=== PATIENT | male | born 1955 | race African-American/Black ===

== ENCOUNTER 2017-03-13 00:17 | Observation (INO) | payer OTHER ==
[~2017-03-13] VITALS: Ht 182.9 cm; Wt 108.9 kg
[~2017-03-13 00:17] MED LIST: ATOR20TA PO; CRESTOR20 MG PO; GABA600T2 PO; INSU100I17 SQ; INSU100V8 SQ; METF500T3 PO
--- NOTE | 2017-03-13 00:37 | PHYS DOC ---
Past History Past Medical History: Diabetes Additional Past Medical Histor: history of pericarditis Past Surgical History: No Surgical History Smoking: Non-smoker Alcohol Use: Occasionally Drug Use: None Adult General Chief Complaint Chief Complaint: chest pain [facility] HPI This patient is a pleasant 62-year-old male with history of diabetes and prior pericarditis who presents with three-hour history of chest pain that began after eating a helping of chicken wings. Patient describes the chest pain as pressure in the epigastrium with no radiation to the back, chest wall, shoulder , jaw or lower abdomen. He has some nausea without vomiting, no diaphoresis no diarrhea. He denies any night sweats, fevers, chills, URI symptoms or chest wall pain or shortness of breath with exertion. The pain is not changed with position. He is not headache like this in the past. He admits his sugars and been under decent control. He denies any sick contacts or recent travel outside the country or recent antibiotic use. Patient denies any trauma. Patient's pain is moderate at this time Dr. Alejandro is PCP Review of Systems Review of Systems Constitutional: Denies fever or chills [] Eyes: Denies change in visual acuity, redness, or eye pain [] HENT: Denies nasal congestion or sore throat [] Respiratory: Denies cough or shortness of breath [] Cardiovascular: No additional information not addressed in HPI [] GI: He describes some mid epigastric abdominal pain with no nausea vomiting diarrheal stools. : Denies dysuria or hematuria [] Musculoskeletal: Denies back pain or joint pain [] Integument: Denies rash or skin lesions [] Neurologic: Denies headache, focal weakness or sensory changes [] Endocrine: Denies polyuria or polydipsia [] Allergies Allergies Allergies Coded Allergies Type Severity Reaction Last Updated Verified No Known Drug Allergies 06/16/15 No Physical Exam Physical Exam Constitutional: Well developed, well nourished, no acute distress, non-toxic appearance. [] HENT: Normocephalic, atraumatic, bilateral external ears normal, oropharynx moist, no oral exudates, nose normal. [] Eyes: PERRLA, EOMI, conjunctiva normal, no discharge. [] Neck: Normal range of motion, no tenderness, supple, no stridor. [] Cardiovascular:Heart rate regular rhythm, no murmur [] Lungs & Thorax: Bilateral breath sounds clear to auscultation [] Abdomen: Bowel sounds normal, soft, no tenderness, no masses, no pulsatile masses. [] Skin: Warm, dry, no erythema, no rash. [] Back: No tenderness, no CVA tenderness. [] Extremities: No tenderness, no cyanosis, no clubbing, ROM intact, no edema. [] Neurologic: Alert and oriented X 3, normal motor function, normal sensory function, no focal deficits noted. [] Psychologic: Affect normal, judgement normal, mood normal. [] EKG EKG EKG timed 12:29 AM 03/13/2017 demonstrates sinus rhythm with a heart rate of 85 [place] interval of 192 QRS width of 92 QTC of 424 all of which were within normal limits. Patient has a no evidence of ST segment or T-wave changes consistent with acute cardiac ischemia. Patient does have is not severe T wave flattening in lead 3 and aVF as well as lateral lead V6. EKG read by Dr. Leach Radiology/Procedures Radiology/Procedures []sIngle view AP chest x-ray read by me time of 12:48 AM 03/13/2017 demonstrates slight cardiomegaly mild hyperinflation of lungs no pleural effusion, no pulmonary infiltrates low lung volumes but no acute pulmonary patterns of disease. Chest x-ray read by me Course & Med Decision Making Course & Med Decision Making Pertinent Labs and Imaging studies reviewed. (See chart for details) Patient complained of chest pain after eating hot spicy wings this evening. Although he has short of breath the chest pain is located on the epigastrium which may be related to peptic ulcer disease or reflux or possibly cholelithiasis. But given this patient is a diabetic lives by himself and is a male with open risk stratified patient demonstrate need for continued workup.Differential diagnosis for chest pain: Pericarditis, myocarditis, endocarditis, pneumothorax, pneumonia, aortic dissection, esophageal spasm, esophagitis, peptic ulcer disease, acute coronary syndrome, mediastinitis, Boerhaave syndrome, musculoskeletal chest wall pain, costochondritis, intercostal strain, rib fracture, pulmonary contusion, pneumonitis, pleural effusion, pericardial effusion, pericardial tamponode, and pleurisy. Was considered upon arrival patient had an EKG, chest x-ray and appropriate low blood work completed. Patient's pain is was completely dissipated with IV narcotic medication provided in the ER. Time is now 1:30 AM patient's first troponin, EKG and chest x-ray are unremarkable patient will need to have continued biomarkers measured over the next 6-12 hours as well as risk stratification by 3rd grade teacher none.History: Was considered and based on age and risk factors patient is moderate risk and will need to be hospitalized for outpatient evaluation of chest pain. At this time doubt pneumonia, pneumothorax, endocarditis, myocarditis or pericarditis. Doubt esophageal spasm or significant coronary artery disease at this time. Although there is no evidence of heart damage this is not a he did not have heart disease. Highly suspicious 2 points moderately suspicious 1. slightly suspicious 0 point EKG: ST segment depression 2. nonspecific repolarization disturbance 1. normal 0 point Age: Greater than 65 2 points, 65-45 1., less than 45 years old 0 points Risk factors:> 3 risk factors 2 points, 1-2 risk factors one point, no risk factors 0 point Troponin: > 2 times normal 2 points, 1-2 times normal 1., normal limits 0 point Total score: Score % pts MACE/n MACE Policy 0-3 32% 1.9% 0.05% Discharge 4-6 51% 413/3136 13% 1.3% Observation Risk management 7-10 17% 518/1045 50% 2.8% Observation Treatment, CAG []Community Service Representative note: director call center sales hydrogen operator Community Service Representative called at of the service called at 1:30 AM Consult called back at 1:30 AM Discussed the case I presented and they agreed with admission. Time of acceptance 1:31 AM [place] Disclaimer Dragon Disclaimer This chart was dictated in whole or in part using Voice Recognition software in a busy, high-work load, and often noisy Emergency Department environment. It may contain unintended and wholly unrecognized errors or omissions. Departure Departure: Impression: Primary Impression: Chest pain Disposition: ADMITTED INPATIENT Condition: GUARDED Referrals: PAULIE SHAY DO (PCP) KENDRA LEACH MD Mar 13, 2017 00:37
[2017-03-13] MEDS ORDERED: NITROGLYCERIN SUBLINGUAL 0.4 MG BOTTLE OF 25. SL PRN ×2 (00:45→01:45)
[2017-03-13] MEDS ORDERED: HYDROmorphone PF 1 MG/ML DISP.SYRIN IV/SQ PRN (00:45)
[2017-03-13] MEDS ORDERED: 0.9 % SODIUM CHLORIDE 10 ML DISP.SYRIN. IV PRN (00:45)
[2017-03-13 01:00] LABS: BASO % 0 % (0-3); EOS # 0.1 x10^3/uL (0.0-0.7); EOS % 1 % (0-3); HEMATOCRIT 38.7 % (39.0-53.0); HEMOGLOBIN 13.3 g/dL (13.0-17.5); LYMPH # 1.5 x10^3/uL (1.0-4.8); LYMPH % 13 % (24-48); MEAN CORPUSCULAR HEMOGLOBIN 33 pg (25-35); MEAN CORPUSCULAR HGB CONC 34 g/dL (31-37); MEAN CORPUSCULAR VOLUME 96 fL (79-100); MONO # 1.4 x10^3/uL (0.0-1.1); MONO % 12 % (0-9); NEUT # 8.1 x10^3uL (1.8-7.7); NEUT % 73 % (31-73); PLATELET COUNT 241 x10^3/uL (140-400); RED BLOOD COUNT 4.04 x10^6/uL (4.30-5.70); RED CELL DISTRIBUTION WIDTH 12.9 % (11.5-14.5); WHITE BLOOD COUNT 11.2 x10^3/uL (4.0-11.0)
[2017-03-13] MEDS ORDERED: ASPIRIN 81 MG TAB.CHEW PO ONE (01:00)
[2017-03-13] MEDS ORDERED: IV NORMAL SALINE 1,000ML 1,000 ML IV SCH ×2 (01:00→01:35)
[2017-03-13 01:08] LABS: COLOR,URINE YELLOW
[2017-03-13 01:09] LABS: BACTERIA,URINE 0 /HPF (0-FEW); BILIRUBIN,URINE NEG (NEG); CLARITY,URINE CLEAR; GLUCOSE,URINE 500 mg/dL (NEG); NITRITE,URINE NEG (NEG); RBC,URINE 0 /HPF (0-2); SQUAMOUS EPITHELIAL CELL,UR OCC /LPF; UROBILINOGEN,URINE 2 mg/dL (0.2 mg/dL); WBC,URINE OCC /HPF (0-4)
[2017-03-13 01:18] LABS: ALBUMIN 3.7 g/dL (3.4-5.0); ALBUMIN/GLOBULIN RATIO 1.1 (1.0-1.7); CALCIUM 9.3 mg/dL (8.5-10.1); CREATININE 1.4 mg/dL (0.7-1.3); GFR 61.9; MAGNESIUM 1.7 mg/dL (1.8-2.4); POTASSIUM 3.6 mmol/L (3.5-5.1); TOTAL BILIRUBIN 0.9 mg/dL (0.2-1.0); TOTAL PROTEIN 7.2 g/dL (6.4-8.2)
[2017-03-13] MEDS ORDERED: ONDANSETRON PF 4 MG/2 ML VIAL. IV PRN (01:45)
[2017-03-13] MEDS ORDERED: HYDROmorphone PF 1 MG/ML DISP.SYRIN IV PRN (01:45)
[2017-03-13] MEDS ORDERED: ACETAMINOPHEN 325 MG TABLET PO PRN (01:45)
[2017-03-13] MEDS ORDERED: Influenza vaccine per PROTOCOL. MC PRN ×2 (04:15→08:00)
[2017-03-13 06:15] VITALS: BP 119/67
--- NOTE | 2017-03-13 07:16 | RAD ---
Portable chest, 03/13/2017: History: Chest pain The heart size and pulmonary vascularity are normal. The lungs are clear. There is no evidence of pleural fluid. IMPRESSION: No acute cardiopulmonary abnormality is detected.
[2017-03-13] MEDS ORDERED: INSULIN ASPART 300 UNITS/3 ML INSULN.PEN SQ SCH ×2 (08:00→12:00)
[2017-03-13] MEDS ORDERED: SITA1TAB11 PO (08:15)
[2017-03-13] MEDS ORDERED: LISI40TA PO (08:17)
[2017-03-13] MEDS ORDERED: ATORVASTATIN CALCIUM 20 MG TABLET PO SCH (09:00)
[2017-03-13] MEDS ORDERED: metFORMIN XR 500 MG TAB.ER.24H PO SCH (09:00)
--- NOTE | 2017-03-13 09:53 | PDOC2 ---
MAYRA SULTANA APRN 03/13/17 0953: CONSULT Date of Admission DATE: 03/13/17 TIME: 09:44 Reason for Consult: chest pain Problem List Problems Medical Problems: (1) Chest pain Status: Acute History of Present Illness Mr Guillen is a 62 year old male with history of diabetes mellitus, hypertension , hyperlipidemia and remote pericarditis. He [place] the [place] when he had sudden onset of left sided chest pain radiating to the epigastric area about 30 minutes after eating spicy chicken wings. He says he got up and walked around without improvement in the discomfort so decided to go home and lay down. He reports the pain increased as he was leaving and driving home. He lay down for about an hour and when he woke he was still having discomfort so presented to the ED. He reports resolution of pain on arrival to the ED. He is unsure if the NTG, he was given, is what relieved his pain. He denies any other symptoms. He is normally very active and works out at the gym daily, walking 6 miles on the step machine and lifting weights. Past Medical History hypertension, hyperlipidemia, diabetes mellitus, pericarditis Past Surgical History none Family History diabetes Social History non smoker, occasional ETOH, no illicit drugs Current Medications Current Medications Aspirin (Children'S Aspirin) 324 mg 1X ONCE PO Last administered on 03/13/17 00:53; Start 03/13/17 at 01:00; Stop 03/13/17 at 01:01; Status DC Nitroglycerin (Nitrostat) 0.4 mg PRN Q5MIN PRN SL CP RATING > 1/10 Last administered on 03/13/17 00:54; Start 03/13/17 at 00:45; Stop 03/13/17 at 01:43 ; Status DC Hydromorphone HCl (Dilaudid) 1 mg PRN Q15MIN PRN IV/SQ PAIN GREATER THAN 3/10; Start 03/13/17 at 00:45; Stop 03/13/17 at 02:54; Status DC Sodium Chloride 1,000 ml @ 1,000 mls/hr Q1H IV Last administered on 03/13/17 00:53; Start 03/13/17 at 01:00; Stop 03/13/17 at 02:54; Status DC Sodium Chloride (Normal Saline Flush) 10 ml QSHIFT PRN IV AFTER MEDS AND BLOOD DRAWS; Start 03/13/17 at 00:45 Ondansetron HCl (Zofran) 4 mg PRN Q4HRS PRN IV NAUSEA/VOMITING; Start 03/13/17 at 01:45; Stop 03/14/17 at 01:44 Sodium Chloride 1,000 ml @ 125 mls/hr Q8H IV Last administered on 03/13/17t 03 :37; Start 03/13/17 at 01:35; Stop 03/14/17 at 01:34 Acetaminophen (Tylenol) 650 mg PRN Q4HRS PRN PO FEVER; Start 03/13/17 at 01:45 ; Stop 03/14/17 at 01:44 Nitroglycerin (Nitrostat) 0.4 mg PRN Q5MIN PRN SL CHEST PAIN; Start 03/13/17 at 01:45; Stop 03/14/17 at 01:44 Hydromorphone HCl (Dilaudid) 1 mg PRN Q2HR PRN IV SEVERE PAIN; Start 03/13/17 at 01:45; Stop 03/14/17 at 01:44 Info (FLU VACCINE per PROTOCOL) 1 ea PRN 1X PRN MC PER PROTOCOL; Start at 04:15; Status UNV Info (FLU VACCINE per PROTOCOL) 1 ea PRN 1X PRN MC PER PROTOCOL; Start at 08:00 Atorvastatin Calcium (Lipitor) 20 mg DAILY PO ; Start 03/13/17 at 09:00; Stop at 09:00; Status DC Insulin Aspart (NovoLOG) 1 units TIDWMEALHC SQ ; Start 03/13/17 at 08:00 Metformin HCl (Glucophage Xr) 500 mg DAILY PO ; Start 03/13/17 at 09:00 Gabapentin (Neurontin) 600 mg QHS PO ; Start 03/13/17 at 21:00 Insulin Detemir (Levemir) 40 units QHS SQ ; Start 03/13/17 at 21:00 Active Scripts Active Reported Lisinopril 40 Mg Tablet 1 Tab PO DAILY Janumet 50-1,000 Mg Tablet (Sitagliptin Phos/Metformin Hcl) 1 Each Tablet 1 Tab PO BID Lantus (Insulin Glargine,Hum.rec.anlog) 100 Unit/1 Ml Vial 50 Unit SQ QHS Novolog Flexpen (Insulin Aspart) 100 Unit/1 Ml Insuln.pen 30 Unit SQ TIDWMEALHC Lipitor (Atorvastatin Calcium) 20 Mg Tablet 1 Tab PO DAILY Gabapentin 600 Mg Tablet 1 Tab PO HS Allergies: Coded Allergies: No Known Drug Allergies (Unverified , 06/16/15) Review of System as per HPI or negative General: Alert, Oriented X3, Cooperative, No acute distress HEENT: Atraumatic, EOMI, Mucous membr. moist/pink Lungs: Clear to auscultation, Normal air movement Heart: Regular rate, Normal S1, Normal S2 Abdomen: Normal bowel sounds, Soft Extremities: No clubbing, No cyanosis, No edema, Normal pulses Neuro: Normal speech, Strength at 5/5 X4 ext Psych/Mental Status: Mental status NL, Mood NL VITALS Vital Signs Date Time Temp Pulse Resp B/P (MAP) Pulse Ox O2 Delivery O2 Flow Rate FiO2 03/13/17 06:15 98.3 70 20 119/67 (84) 93 Room Air Labs Laboratory Tests Test 03/13/17 00:35 03/13/17 00:39 03/13/17 06:29 White Blood Count 11.2 x10^3/uL (4.0-11.0) Red Blood Count 4.04 x10^6/uL (4.30-5.70) Hemoglobin 13.3 g/dL (13.0-17.5) Hematocrit 38.7 % (39.0-53.0) Mean Corpuscular Volume 96 fL (79-100) Mean Corpuscular Hemoglobin 33 pg (25-35) Mean Corpuscular Hemoglobin Concent 34 g/dL (31-37) Red Cell Distribution Width 12.9 % (11.5-14.5) Platelet Count 241 x10^3/uL (140-400) Neutrophils (%) (Auto) 73 % (31-73) Lymphocytes (%) (Auto) 13 % (24-48) Monocytes (%) (Auto) 12 % (0-9) Eosinophils (%) (Auto) 1 % (0-3) Basophils (%) (Auto) 0 % (0-3) Neutrophils # (Auto) 8.1 x10^3uL (1.8-7.7) Lymphocytes # (Auto) 1.5 x10^3/uL (1.0-4.8) Monocytes # (Auto) 1.4 x10^3/uL (0.0-1.1) Eosinophils # (Auto) 0.1 x10^3/uL (0.0-0.7) Basophils # (Auto) 0.0 x10^3/uL (0.0-0.2) Sodium Level 140 mmol/L (136-145) Potassium Level 3.6 mmol/L (3.5-5.1) Chloride Level 103 mmol/L (98-107) Carbon Dioxide Level 30 mmol/L (21-32) Anion Gap 7 (6-14) Blood Urea Nitrogen 24 mg/dL (8-26) Creatinine 1.4 mg/dL (0.7-1.3) Estimated GFR (Cockcroft-Gault) 61.9 BUN/Creatinine Ratio 17 (6-20) Glucose Level 93 mg/dL (70-99) Calcium Level 9.3 mg/dL (8.5-10.1) Magnesium Level 1.7 mg/dL (1.8-2.4) Total Bilirubin 0.9 mg/dL (0.2-1.0) Aspartate Amino Transf (AST/SGOT) 19 U/L (15-37) Alanine Aminotransferase (ALT/SGPT) 33 U/L (16-63) Alkaline Phosphatase 52 U/L (46-116) Creatine Kinase 287 U/L (39-308) Creatine Kinase MB (Mass) 3.3 ng/mL (0.0-3.6) Creatine Kinase MB Relative Index 1.1 % (0-4) Troponin I Quantitative < 0.017 ng/mL (0-0.055) < 0.017 ng/mL (0-0.055) RI-Ocy-Z-Type Natriuretic Peptide 12 pg/mL (0-124) Total Protein 7.2 g/dL (6.4-8.2) Albumin 3.7 g/dL (3.4-5.0) Albumin/Globulin Ratio 1.1 (1.0-1.7) Lipase 129 U/L (73-393) Urine Collection Type Unknown Urine Color Yellow Urine Clarity Clear Urine pH 7.0 Urine Specific [place] 1.020 Urine Protein 100 mg/dl (NEG-TRACE) Urine Glucose (UA) 500 mg/dL (NEG) Urine Ketones (Stick) Trace mg/dL (NEG) Urine Blood Neg (NEG) Urine Nitrite Neg (NEG) Urine Bilirubin Neg (NEG) Urine Urobilinogen Dipstick 2 mg/dL (0.2 mg/dL) Urine Leukocyte Esterase Neg (NEG) Urine RBC 0 /HPF (0-2) Urine WBC Occ /HPF (0-4) Urine Squamous Epithelial Cells Occ /LPF Urine Bacteria 0 /HPF (0-FEW) Images EKG - sinus rhythm, early R wave transition, non specific st/t abn. Assessment/Plan 1. chest pain, mixed features - CE negative x 2. no acute EKG abnormalities. GI coctail x 1. check echo. If no acute abn, suggest outpatient MPI. 2. hypertension - well controlled, continue home meds. 3. hyperlipidemia - check lipids and continue home statin. 4. diabetes mellitus - mgmt per PCP Problems: CRISTINA JAQUEZ MD 03/13/17 1505: CONSULT Allergies: Coded Allergies: No Known Drug Allergies (Unverified , 06/16/15) Assessment/Plan Patient seen and examined The patient is feeling well this morning. Episodes of chest pain. Resolved. No acute EKG changes or elevation in troponin. We'll continue medical treatment. Increase activities. Echocardiogram today. If no significant abnormalities on echocardiogram will consider discharge later today with outpatient nuclear treadmill follow-up. If the patient has recurrent pain or decreased ejection fraction will proceed with inpatient MPI testing tomorrow. Hypertension. Controlled. Continue medical treatment. Hyperlipidemia. Continue statins. Check lab. Diabetes mellitus. As per the primary service. Thank you for allowing us to participate in the care of your patient. Problems: MAYRA SULTANA APRN Mar 13, 2017 09:53 CRISTINA JAQUEZ MD Mar 13, 2017 15:05
[2017-03-13] MEDS ORDERED: LIDO:MAALOX 1:1 20 ML SINGLE DOSE PO ONE (10:00)
[2017-03-13 10:59] VITALS: BP 143/76
[2017-03-13] MEDS ORDERED: MAGNESIUM OXIDE 400 MG TABLET PO SCH (13:20)
[2017-03-13 15:29] VITALS: BP 146/72
--- NOTE | 2017-03-13 16:06 | CARD ---
APPROVED REPORT EXAM: Two-dimensional and M-mode echocardiogram with Doppler and color Doppler. Other Information Quality : Average Rhythm : NSR INDICATION Chest Pain 2D DIMENSIONS RVDd3.5 (2.9-3.5cm)Left Atrium(2D)3.4 (1.6-4.0cm) IVSd1.3 (0.7-1.1cm)Aortic Root(2D)3.6 (2.0-3.7cm) LVDd4.4 (3.9-5.9cm)LVOT Diameter2.5 (1.8-2.4cm) PWd1.3 (0.7-1.1cm)LVDs3.0 (2.5-4.0cm) FS (%) 32.4 %SV52.5 ml LVEF(%)60.9 (>50%) Aortic Valve AoV Peak Emanuel.114.6cm/sAoV VTI20.4cm AO Peak GR.5.3mmHgLVOT Peak Emanuel.103.8cm/s LVOT VTI 19.87cmAO Mean GR.4mmHg CIELO (VMAX)4.26vt4HZO (VTI)4.67cm2 Mitral Valve MV E Iuzbotgl97.5cm/sMV DECEL OWQU283gq MV A Hiqgsnoa81.1cm/sMV DIG37lw E/A Ratio1.2MV A Sojmmscb901xf MVA (PHT)4.24cm2 Tricuspid Valve TR P. Sskpyykr979np/sRAP OTNHTXAV7jpWv TR Peak Gr.95wpGdNHDX04inZv LEFT VENTRICLE The left ventricle is normal size. There is borderline to mild concentric left ventricular hypertroph y. Left ventricle systolic function is normal. The Ejection Fraction is 55-60%. There is normal LV se gmental wall motion. The left ventricular diastolic function and filling is normal for age. RIGHT VENTRICLE The right ventricle is normal size. The right ventricular systolic function is normal. ATRIA The left atrium size is normal. The right atrium size is normal. The interatrial septum is intact wit h no evidence for an atrial septal defect or patent foramen ovale as noted on 2-D or Doppler imaging. AORTIC VALVE The aortic valve is normal in structure and function. The aortic valve is trileaflet. Doppler and Col or Flow revealed no significant aortic regurgitation. There is no significant aortic valvular stenosi s. MITRAL VALVE The mitral valve is normal in structure and function. There is no mitral valve stenosis. Doppler and Color Flow revealed no mitral valve regurgitation noted. TRICUSPID VALVE The tricuspid valve is normal in structure and function. Doppler and Color Flow revealed trace tricus pid regurgitation. The PA pressure was estimated at 24 mmHg. There is no tricuspid valve stenosis. PULMONIC VALVE The pulmonic valve is not well visualized. Doppler and Color Flow revealed no pulmonic valvular regur gitation. There is no pulmonic valvular stenosis. GREAT VESSELS The aortic root is normal in size. The ascending aorta is normal in size. The IVC is normal in size a nd collapses >50% with inspiration. PERICARDIAL EFFUSION There is no evidence of significant pericardial effusion. Critical Notification Critical Value: No <Conclusion> Left ventricle systolic function is normal. The Ejection Fraction is 55-60%. There is normal LV segmental wall motion.
--- NOTE | 2017-03-13 16:10 | HP ---
ADMIT DATE: 03/13/2017 REASON FOR ADMISSION: Chest pain. HISTORY OF PRESENT ILLNESS: This is a 62-year-old retired gentleman, who [place] the [place]. He had some chicken wings and developed some acute epigastric pain. It was on the left side, radiating down to his stomach, could not exactly differentiate whether it was chest pain versus GI. He went home, but the pain got worse and continued, so he came to the Emergency Room. The pain did resolve prior to arriving at the ER. PAST MEDICAL HISTORY: Type 2 diabetes, hypertension, hyperlipidemia, remote history of pericarditis, peripheral neuropathy. 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 Pericarditis in 1979. FAMILY HISTORY: Positive for coronary artery disease. Father at age 50, who had acute myocardial infarction. MEDICATIONS: Reviewed and corrected on the AUG. ALLERGIES: None. SOCIAL HISTORY: Never smoked, moderate drinking. No history of drug abuse. Retired . REVIEW OF SYSTEMS: As per HPI. OBJECTIVE: VITAL SIGNS: Blood pressure 119/67, pulse 70, respirations 20, O2 sat is 93% on room air. HEENT: The patient's hearing is normal. His eyes were clear. His Nose was patent. His throat was clear. He has somewhat of a scalloped tongue. NECK: Supple, without adenopathy. There were no carotid bruits. LUNGS: Clear to auscultation. CARDIOVASCULAR: Regular rhythm and rate. ABDOMEN: Soft, mild midepigastric tenderness. EXTREMITIES: Without edema. Faint pulses in his feet. LABORATORY DATA: Troponins negative x 3. Glucose is in the 200s. Urinalysis negative. EKG per Cardiology. I do not have access to it at the present time. It is not on the computer. ASSESSMENT: 1. Chest pain, questionable etiology, probable gastrointestinal. 2. Type 2 diabetes. 3. Hyperlipidemia. 4. Elevated creatinine. 5. Chronic kidney disease stage 2. 6. Hypomagnesemia. PLAN: Replete magnesium, getting an echocardiogram, and will appreciate cardiology's helping. EMMA MANRIQUEZ DO DR: KITTY/waqar JOB#: [id number] / [id number]
[2017-03-13] MEDS ORDERED: MAGN400T22 PO (17:15)
[2017-03-13] MEDS ORDERED: NON FORMULARY ITEM (Sitagliptin Phos/Metformin Hcl (Janumet 50-1,000 Mg Tablet) 1 TAB) PO SCH (21:00)
[2017-03-13] MEDS ORDERED: INSULIN DETEMIR 300 UNITS/3 ML INSULN.PEN. SQ SCH (21:00)
[2017-03-13] MEDS ORDERED: GABAPENTIN 300 MG CAPSULE. PO SCH (21:00)
--- NOTE | 2017-03-14 08:29 | EKG ---
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
--- NOTE | 2017-03-14 08:34 | EKG ---
[facility] [address] [place] [address] Test Date: 2017-03-13 Test Time: 15:29:13 Pat Name: SALVATORE DRISCOLL Department: Room: 122 A Gender: M Pet Counselor: JOANNA : 1955 Requested By: ANIRUDH PETERSON Order Number: [id number] Reading MD: Measurements Intervals [place] Rate: 85 P: 38 AR: 132 QRS: 8 QRSD: 82 T: 26 QT: 380 QTc: 458 Interpretive Statements SINUS RHYTHM NON SPECIFIC T ABNORMALITY RI6.01 Unconfirmed report No previous ECG available for comparison
--- NOTE | 2017-03-14 08:34 | EKG ---
[address] [address] Test Date: 2017-03-13 Test Time: 14:30:29 Pat Name: SALVATORE DRISCOLL Department: Room: 122 A Gender: M Photogrammetric Engineer: JOANNA : 1955 Requested By: ANIRUDH PETERSON Order Number: [id number] Reading MD: Measurements Intervals [place] Rate: 72 P: -24 VT: 98 QRS: -17 QRSD: 94 T: 152 QT: 384 QTc: 422 Interpretive Statements SINUS RHYTHM LEFTWARD AXIS LOW LIMB LEAD VOLTAGE CONSIDER LEFT VENTRICULAR HYPERTROPHY T ABNORMALITY IN HIGH LATERAL LEADS RI6.01 Unconfirmed report No previous ECG available for comparison
[2017-03-14] MEDS ORDERED: LISINOPRIL 20 MG TABLET PO SCH (10:15)
[2017-03-14] MEDS ORDERED: metFORMIN XR 500 MG TAB.ER.24H PO SCH (10:15)
[2017-03-14] MEDS ORDERED: LINAGLIPTIN 5 MG TABLET PO SCH (10:15)
--- NOTE | 2017-03-14 22:53 | DS ---
DATE OF DISCHARGE: 03/13/2017 Please note a full history and physical was done on 03/13/2017 and he also was discharged on 03/13/2017. HOSPITAL COURSE: A 62-year-old was admitted for chest pain and his troponins were negative and the EKG was also negative. He was given a GI cocktail, which was helpful. Other diagnoses include hypertension, hyperlipidemia and diabetes, as well as chronic kidney disease stage 2, hypomagnesemia. He was seen in consultation by Cardiology and was deemed stable to be discharged to have an outpatient nuclear treadmill. For further information, please see H and P. For medications, see MRAD. EMMA MANRIQUEZ DO DR: KITTY/waqar JOB#: [id number] / [id number]
== END 2017-03-13 17:45 | disposition home or self-care (01) ==
LOC: ER 00:17 → INTOOBSV 01:40 → 1 SOUTH 01:40 → ER 01:49
PROVIDERS: ADMIT Internal Medicine; ATTEND Internal Medicine
DX: R07.89 Other chest pain (principal); E11.22 Type 2 diabetes mellitus with diabetic chronic kidney disease; N18.2 Chronic kidney disease, stage 2 (mild); I12.9 Hypertensive chronic kidney disease with stage 1 through stage 4 chronic kidney disease, or unspecified chronic kidney disease; E78.5 Hyperlipidemia, unspecified; E83.42 Hypomagnesemia; Z82.49 Family history of ischemic heart disease and other diseases of the circulatory system; Z83.3 Family history of diabetes mellitus; Z86.73 Personal history of transient ischemic attack (TIA), and cerebral infarction without residual deficits
CPT/HCPCS: 36415; 71010; 80053; 81001; 82553; 82947; 83690; 83735; 83880; 84443; 84484; 85025; 93005; 93306; 96361; 96372; G0378; G0379; J1815; 96360; 99285-25; J7030

== ENCOUNTER 2018-02-22 11:44 | Emergency (ER) | payer OTHER ==
[~2018-02-22] VITALS: Ht 182.9 cm; Wt 112.5 kg
[~2018-02-22 11:44] MED LIST changes: +LISI40TA PO; +MAGN400T22 PO; +SITA1TAB11 PO
[2018-02-22] MEDS ORDERED: NITROGLYCERIN SUBLINGUAL 0.4 MG BOTTLE OF 25. SL PRN (12:00)
--- NOTE | 2018-02-22 12:11 | PHYS DOC ---
Past History Past Medical History: Diabetes, High Cholesterol Additional Past Medical Histor: history of pericarditis Past Surgical History: No Surgical History Smoking: Non-smoker Alcohol Use: Occasionally Drug Use: None Adult General Chief Complaint Chief Complaint: chest pain HPI HPI Patient is a 63 year old male who presents with complaining of right-sided chest pain. Patient states he was in the gym like his usual daily basis and exercised for about 2 hours and then spent about 30 minutes in the sauna. Patient complaining of right side chest burning pain that started about 20 minutes prior to arrival as a constant pain and associated with dizziness, lightheadedness, diaphoresis and nausea without palpitation, shortness of breath , fever and chills, focal neuro deficit. Patient states he had chest pain previously but his pain today was different than his usual chest pain. Patient rated his pain moderate. Patient has history of diabetes, dyslipidemia, and family history of coronary artery disease. Patient denies hypertension, coronary artery disease and smoking. Patient takes daily 81 mg of aspirin. Review of Systems Review of Systems Constitutional: Denies fever or chills [] Eyes: Denies change in visual acuity, redness, or eye pain [] HENT: Denies nasal congestion or sore throat [] Respiratory: Denies cough or shortness of breath [] Cardiovascular: No additional information not addressed in HPI [] GI: Denies abdominal pain, vomiting, bloody stools or diarrhea , reports nausea [] : Denies dysuria or hematuria [] Musculoskeletal: Denies back pain or joint pain [] Integument: Denies rash or skin lesions [] Neurologic: Denies headache, focal weakness or sensory changes, reports dizziness Endocrine: Denies polyuria or polydipsia [] All other systems were reviewed and found to be within normal limits, except as documented in this note. Current Medications Current Medications Current Medications Medications (Trade) Dose Ordered Sig/Monster Start Time Stop Time Status Last Admin Dose Admin Aspirin (Children'S Aspirin) 324 mg 1X ONCE 02/22/18 12:30 02/22/18 12:31 02/22/18 12:05 324 MG Nitroglycerin (Nitrostat) 0.4 mg PRN Q5MIN PRN 02/22/18 12:00 02/23/18 11:59 Allergies Allergies Allergies Coded Allergies Type Severity Reaction Last Updated Verified No Known Drug Allergies 06/16/15 No Physical Exam Physical Exam Constitutional: Well developed, well nourished, no acute distress, non-toxic appearance. [] HENT: Normocephalic, atraumatic, bilateral external ears normal, oropharynx moist, no oral exudates, nose normal. [] Eyes: PERRLA, EOMI, conjunctiva normal, no discharge. [] Neck: Normal range of motion, no tenderness, supple, no stridor. [] Cardiovascular:Heart rate regular rhythm, no murmur [] Lungs & Thorax: Bilateral breath sounds clear to auscultation [] Abdomen: Bowel sounds normal, soft, no tenderness, no masses, no pulsatile masses. [] Skin: Warm, dry, no erythema, no rash. [] Back: No tenderness, no CVA tenderness. [] Extremities: No tenderness, no cyanosis, no clubbing, ROM intact, no edema. [] Neurologic: Alert and oriented X 3, normal motor function, normal sensory function, no focal deficits noted. [] Psychologic: Affect normal, judgement normal, mood normal. [] EKG EKG EKG interpreted by me. EKG at 1153 showed normal sinus rhythm at rate of 69, ST elevation in anteroseptal leads with reciprocal changes in inferior leads, acute STEMI. Radiology/Procedures Radiology/Procedures [] Course & Med Decision Making Course & Med Decision Making Pertinent Labs reviewed. (See chart for details) Evaluation of patient in ER showed 63-year-old male patient with several cardiac risk factor complaining of right-sided chest burning pain after increasing his exercise today. Patient had STEMI in EKG with stimulation in anteroseptal leads and reciprocal changes in inferior leads with code STEMI was activated at 1154 and on-call gis programmer Dr. Rm called back at 1207 and he recommended to transfer patient to [facility] in [facility] and did not comment anticoagulation medication. Dr. Muniz on-call hospitalist accepted transfer to [facility] at 1208. Patient and his daughter informed about this result and needs for transfer. Patient's blood pressure was 104 and nitroglycerin was not started and 1 dose of morphine was given. Patient was out of this ER door at 1220. Dragon Disclaimer Dragon Disclaimer This electronic medical record was generated, in whole or in part, using a voice recognition dictation system. Departure Departure: Impression: Primary Impression: STEMI (ST elevation myocardial infarction) Additional Impressions: Renal insufficiency Diabetes mellitus Disposition: XF S[facility]-TRM HOSP ([facility] at 1210) Admitting Physician: Nikolas Muniz (Accepted transferred to [facility] at 1208) Condition: GUARDED Referrals: PAULIE SHAY DO (PCP) Critical Care Time Critical care time was 40 minutes exclusive of procedures. Problem Qualifiers SARA ESCALONA MD Feb 22, 2018 12:11
[2018-02-22 12:13] LABS: BASO % 1 % (0-3); EOS # 0.1 x10^3/uL (0.0-0.7); EOS % 1 % (0-3); HEMATOCRIT 41.2 % (39.0-53.0); HEMOGLOBIN 13.8 g/dL (13.0-17.5); LYMPH # 1.3 x10^3/uL (1.0-4.8); LYMPH % 21 % (24-48); MEAN CORPUSCULAR HEMOGLOBIN 32 pg (25-35); MEAN CORPUSCULAR HGB CONC 33 g/dL (31-37); MEAN CORPUSCULAR VOLUME 96 fL (79-100); MONO # 0.7 x10^3/uL (0.0-1.1); MONO % 12 % (0-9); NEUT % 65 % (31-73); PLATELET COUNT 273 x10^3/uL (140-400); RED BLOOD COUNT 4.31 x10^6/uL (4.30-5.70); RED CELL DISTRIBUTION WIDTH 12.6 % (11.5-14.5); WHITE BLOOD COUNT 6.1 x10^3/uL (4.0-11.0)
[2018-02-22] MEDS ORDERED: MORPHINE SULFATE 4 MG/ML DISP.SYRIN. IV ONE (12:15)
[2018-02-22] MEDS ORDERED: ONDANSETRON PF 4 MG/2 ML VIAL. IV ONE (12:15)
[2018-02-22] MEDS ORDERED: ONDANSETRON PF 4 MG/2 ML VIAL. ONE (12:19)
[2018-02-22 12:20] VITALS: BP 124/94
[2018-02-22] MEDS ORDERED: ASPIRIN 81 MG TAB.CHEW PO ONE (12:30)
[2018-02-22 12:38] LABS: ALBUMIN 3.6 g/dL (3.4-5.0); CALCIUM 9.4 mg/dL (8.5-10.1); CREATININE 2.1 mg/dL (0.7-1.3); GFR 38.7; POTASSIUM 3.9 mmol/L (3.5-5.1); TOTAL BILIRUBIN 0.7 mg/dL (0.2-1.0); TOTAL PROTEIN 7.3 g/dL (6.4-8.2)
--- NOTE | 2018-02-22 13:08 | EKG ---
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
== END 2018-02-22 12:20 | disposition short-term general hospital (02) ==
LOC: ER 11:44
DX: I21.09 ST elevation (STEMI) myocardial infarction involving other coronary artery of anterior wall (principal); N28.9 Disorder of kidney and ureter, unspecified; E11.9 Type 2 diabetes mellitus without complications; E78.00 Pure hypercholesterolemia, unspecified
CPT/HCPCS: 36415; 80053; 82553; 82947; 83690; 83735; 83880; 84484; 85025; 85610; 85730; 93005; 96374; 96375; 99291; J2270; J2405

== ENCOUNTER → 2019-05-21 | Outpatient (CLI) | payer MEDICARE, OTHER ==
[~2019-05-21] MED LIST changes: -GABA600T2 PO; +GABA600T7 PO
--- NOTE | 2019-05-21 12:04 | CARD ---
MR#: [id number] Date of Study: 05/21/2019 Ordering Physician: BAILEY MCCODR, Referring Physician: BAILEY MCCORD, Tech: Tori Sinclair RDCS APPROVED REPORT EXAM: Two-dimensional and M-mode echocardiogram with Doppler and color Doppler. Other Information Quality : Good INDICATION Cardiac Disease: CAD Stents 02/10 2D DIMENSIONS RVDd2.3 (2.9-3.5cm)Left Atrium(2D)3.8 (1.6-4.0cm) IVSd1.1 (0.7-1.1cm)Aortic Root(2D)3.7 (2.0-3.7cm) LVDd5.3 (3.9-5.9cm)LVOT Diameter2.3 (1.8-2.4cm) PWd1.1 (0.7-1.1cm)LVDs4.1 (2.5-4.0cm) FS (%) 23.5 %SV64.2 ml LVEF(%)50.0 (>50%) Aortic Valve AoV Peak Emanuel.110.0cm/sAoV VTI21.6cm AO Peak GR.4.8mmHgLVOT Peak Emanuel.111.0cm/s LVOT VTI 22.12cmAO Mean GR.3mmHg CIELO (VMAX)4.67uh1EBV (VTI)4.07cm2 Mitral Valve MV E Cmfsnqxb27.7cm/sMV DECEL [id number] MV A Ltuhxnky35.9cm/sE/A Ratio0.6 Tricuspid Valve TR P. Gzcbuesh474yh/sRAP DSDPUCFB3ebFp TR Peak Gr.09axTcUJZP48fqLy Pulmonary Vein S1 Ymkacfgy90.8cm/sD2 Drkrgcwo79.1cm/s LEFT VENTRICLE The left ventricle is normal size. There is normal left ventricular wall thickness. Left ventricle sy stolic function is low normal. The Ejection Fraction is 50-55%. There is normal LV segmental wall mot ion. Transmitral Doppler flow pattern is Grade I-abnormal relaxation pattern. RIGHT VENTRICLE The right ventricle is normal size. The right ventricular systolic function is normal. ATRIA The left atrium size is normal. The right atrium size is normal. The interatrial septum is intact wit h no evidence for an atrial septal defect or patent foramen ovale as noted on 2-D or Doppler imaging. AORTIC VALVE The aortic valve is calcified but opens well. Doppler and Color Flow revealed no significant aortic r egurgitation. There is no significant aortic valvular stenosis. MITRAL VALVE The mitral valve is normal in structure and function. There is no evidence of mitral valve prolapse. There is no mitral valve stenosis. Doppler and Color-flow revealed trace mitral regurgitation. TRICUSPID VALVE The tricuspid valve is normal in structure and function. Doppler and Color Flow revealed trace tricus pid regurgitation. The PA pressure was estimated at 29 mmHg. There is no tricuspid valve stenosis. PULMONIC VALVE The pulmonary valve is normal in structure and function. Doppler and Color Flow revealed no pulmonic valvular regurgitation. There is no pulmonic valvular stenosis. GREAT VESSELS The aortic root is normal in size. The ascending aorta is normal in size. The IVC is normal in size a nd collapses >50% with inspiration. PERICARDIAL EFFUSION There is no evidence of significant pericardial effusion. Critical Notification Critical Value: No <Conclusion> Left ventricle systolic function is low normal. The Ejection Fraction is 50-55%. Transmitral Doppler flow pattern is Grade I-abnormal relaxation pattern. Trace mitral regurgitation. Trace tricuspid regurgitation. The PA pressure was estimated at 29 mmHg. There is no evidence of significant pericardial effusion. Signed by : Shant Serrano, Electronically Approved : 05/21/2019 12:03:46
== END | disposition home or self-care (01) ==
LOC: ECHO 10:54
PROVIDERS: ATTEND Internal Medicine Cardiovascular Disease
DX: I35.8 Other nonrheumatic aortic valve disorders (principal); I25.10 Atherosclerotic heart disease of native coronary artery without angina pectoris
CPT/HCPCS: 93306

== ENCOUNTER → 2019-12-04 | Outpatient (CLI) | payer MEDICARE, OTHER ==
[2019-12-04 09:47] LABS: BASO % 1 % (0-3); EOS # 0.1 x10^3/uL (0.0-0.7); EOS % 2 % (0-3); HEMATOCRIT 40.4 % (39.0-53.0); HEMOGLOBIN 13.6 g/dL (13.0-17.5); LYMPH # 1.8 x10^3/uL (1.0-4.8); LYMPH % 34 % (24-48); MEAN CORPUSCULAR HEMOGLOBIN 33 pg (25-35); MEAN CORPUSCULAR HGB CONC 34 g/dL (31-37); MEAN CORPUSCULAR VOLUME 99 fL (79-100); MONO # 0.7 x10^3/uL (0.0-1.1); MONO % 13 % (0-9); NEUT # 2.5 x10^3uL (1.8-7.7); NEUT % 50 % (31-73); PLATELET COUNT 201 x10^3/uL (140-400); RED BLOOD COUNT 4.08 x10^6/uL (4.30-5.70); RED CELL DISTRIBUTION WIDTH 12.6 % (11.5-14.5); WHITE BLOOD COUNT 5.1 x10^3/uL (4.0-11.0)
[2019-12-04 10:00] LABS: BACTERIA,URINE 0 /HPF (0-FEW); BILIRUBIN,URINE NEG (NEG); CLARITY,URINE CLEAR; COLOR,URINE YELLOW; GLUCOSE,URINE 500 mg/dL (NEG); HYALINE CASTS, URINE FEW /HPF; NITRITE,URINE NEG (NEG); RBC,URINE 0 /HPF (0-2); SQUAMOUS EPITHELIAL CELL,UR OCC /LPF; UROBILINOGEN,URINE 0.2 mg/dL (0.2 mg/dL); WBC,URINE OCC /HPF (0-4)
[2019-12-04 10:01] LABS: ALBUMIN 3.7 g/dL (3.4-5.0); ALK PHOS 67 U/L (46-116); ALT (SGPT) 21 U/L (16-63); ANION GAP 10 (6-14); AST (SGOT) < 5 U/L (15-37); BLOOD UREA NITROGEN 42 mg/dL (8-26); BUN/CREATININE RATIO 18 (6-20); CARBON DIOXIDE 24 mmol/L (21-32); CHLORIDE 106 mmol/L (98-107); CREATININE 2.4 mg/dL (0.7-1.3); GLUCOSE 223 mg/dL (70-99); POTASSIUM 3.8 mmol/L (3.5-5.1); SODIUM 140 mmol/L (136-145); TOTAL BILIRUBIN 0.5 mg/dL (0.2-1.0); TOTAL PROTEIN 7.5 g/dL (6.4-8.2)
[2019-12-04 14:12] LABS: THYROID STIM HORMONE (TSH) 1.348 uIU/mL (0.358-3.740)
[2019-12-05 01:07] LABS: HEMOGLOBIN A1C 8.1 % (4.8-5.6)
== END | disposition home or self-care (01) ==
LOC: LAB 08:45
PROVIDERS: ATTEND Nurse Practitioner Adult Health
DX: Z00.01 Encounter for general adult medical examination with abnormal findings (principal); E11.65 Type 2 diabetes mellitus with hyperglycemia; E03.9 Hypothyroidism, unspecified; I10 Essential (primary) hypertension; E78.00 Pure hypercholesterolemia, unspecified
CPT/HCPCS: 36415; 80053; 80061; 81001; 82043; 83036; 83880; 84153; 84443; 85025; 86376; G0103